=== PATIENT | female | born 1945 ===

== ENCOUNTER 2020-12-03 12:30 | Inpatient (IN) | payer OTHER ==
[~2020-12-03] VITALS: Ht 152.4 cm; Wt 53.5 kg
[2020-12-03] MEDS ORDERED: METFORMIN HCL1000 M2 PO (16:08)
[2020-12-03] MEDS ORDERED: SYNTHROID75 MCG PO (16:08)
== END 2020-12-11 16:36 | disposition home or self-care (01) | DRG 330 ==
LOC: EDSTATUS 12:30 → ADM 12:30 → O/R 12-06 05:50 → SURH 12-06 05:50
PROVIDERS: ADMIT Colon & Rectal Surgery; ATTEND Colon & Rectal Surgery
PROC: 0DTN0ZZ Resection of Sigmoid Colon, Open Approach (ICD-10-PCS; principal; 2020-12-06 07:00)
PROC: 3E0F7GC Introduction of Other Therapeutic Substance into Respiratory Tract, Via Natural or Artificial Opening (ICD-10-PCS; 2020-12-09)
DX: K57.32 Diverticulitis of large intestine without perforation or abscess without bleeding (principal); J90 Pleural effusion, not elsewhere classified; J98.01 Acute bronchospasm; E87.6 Hypokalemia; E83.42 Hypomagnesemia; Z20.822 Contact with and (suspected) exposure to COVID-19